=== PATIENT | male | born 1970 | race Caucasian/White ===

== ENCOUNTER 2020-04-25 16:51 | Inpatient (IN) | payer OTHER ==
[~2020-04-25] VITALS: Ht 167.6 cm; Wt 107.2 kg
[2020-04-25 17:46] LABS: BASOPHILS ABSOLUTE AUTO 0.01 K/mm3 (0.00-0.23); BASOPHILS PERCENT AUTO 0 % (0-2); EOSINOPHILS ABSOLUTE AUTO 0.13 K/mm3 (0.00-0.68); EOSINOPHILS PERCENT AUTO 3 % (0-6); Hematocrit 48.4 % (37.0-53.0); Hemoglobin 16.3 g/dL (13.5-17.5); IMMATURE GRAN ABSOLUTE AUTO 0.01 K/mm3 (0.00-0.10); IMMATURE GRAN PERCENT AUTO 0 % (0-1); LYMPHOCYTES ABSOLUTE AUTO 1.46 K/mm3 (0.84-5.20); LYMPHOCYTES PERCENT AUTO 29 % (21-46); MONOCYTES ABSOLUTE AUTO 0.42 K/mm3 (0.16-1.47); MONOCYTES PERCENT AUTO 8 % (4-13); Mean Corpuscular HGB 30.6 pg (26.0-34.0); Mean Corpuscular HGB Conc 33.7 g/dL (31.5-36.5); Mean Corpuscular Volume 91 fL (80-100); Mean Platelet Volume 9.1 fL (9.1-12.4); NEUTROPHILS ABSOLUTE AUTO 3.07 K/mm3 (1.96-9.15); NEUTROPHILS PERCENT AUTO 60 % (41-73); Platelet Count 181 K/mm3 (150-400); RDW Coefficient Variation 12.2 % (11.7-14.2); RDW Standard Deviation 40.7 fL (35.1-46.3); Red Blood Cell Count 5.32 M/mm3 (4.30-5.90)
[2020-04-25 18:09] LABS: Troponin I 0.054 ng/mL (0.000-0.040)
[2020-04-25 18:20] LABS: Alanine Aminotransfer (ALT/SGP 62 U/L (12-78); Albumin, Blood 3.8 g/dL (3.4-5.0); Albumin/Globulin Ratio 0.9 (0.8-1.8); Alk Phos 73 U/L (50-136); Anion Gap 6 mmol/L (6-16); Aspartate Aminotrans (AST/SGOT 46 U/L (12-37); Bilirubin, Total 0.5 mg/dL (0.1-1.0); Blood Urea Nitrogen 15 mg/dL (8-24); CO2, Blood 27 mmol/L (21-32); Calcium, Blood 8.5 mg/dL (8.5-10.1); Chloride, Blood 105 mmol/L (98-108); Creatinine, Blood 1.25 mg/dL (0.60-1.20); Globulin, Blood 4.3 g/dL (2.2-4.0); Glomerular Filtration Rate >60 (60-); Glucose, Blood 108 mg/dL (70-99); Potassium, Blood 4.4 mmol/L (3.5-5.5); Sodium, Blood 138 mmol/L (136-145); Total Protein, Blood 8.1 g/dL (6.4-8.2)
[2020-04-25] MEDS ORDERED: ASPI325EC PO (20:17)
--- NOTE | 2020-04-26 00:30 | NUR ---
0025 PT ADMITTED TO ROOM 343 PER CART FROM ER; REPORT RECEIVED FROM MAC RN; PT ALERT AND ORIENTED X 4; PT STUTTERS WITH SPEECH AT TIMES; DENIES PAIN OR NAUSEA; BALANCE UNSTEADY MOVING FROM CART TO BED.
--- NOTE | 2020-04-26 04:20 | NUR ---
SHIFT SUMMARY: 49 Y/O MALE RESTED COMFORTABLY IN BED; DENIES PAIN OR NAUSEA; PTS EQUILBRUM IS POOR WITH GAIT UNSTEADY; ALERT AND ORIENTED X 3, ABLE TO FOLLOW SIMPLE VERBAL COMMANDS; BED ALARM APPLIED, BED LOW POSITION WITH CALL LIGHT AT SIDE.
[2020-04-26 08:08] LABS: CHOL/HDL RATIO 6.2; Cholesterol 217 mg/dL (50-200); HDL Cholesterol 35 mg/dL (>39); LDL/HDL RATIO 4.1; Low Density Lipoprotein Chol 144 mg/dL (0-110); Triglycerides 190 mg/dL (30-160); Very Low Density Lipoprot Chol 38 mg/dL (6-32)
[2020-04-26 10:58] LABS: U Amphetamine Screen Not Detected; U Barbituate Screen Not Detected; U Benzodiazapine Screen Not Detected; U Buprenorphine Screen Not Detected; U Cannabinoids Screen Not Detected; U Cocaine Screen Not Detected; U Methadone Screen Not Detected; U Methamphetamine Screen Not Detected; U Opiates Screen Not Detected; U Oxycodone Screen Not Detected; U Phencyclidine Screen Not Detected; U Propoxyphene Screen Not Detected
--- NOTE | 2020-04-26 12:54 | NUR ---
ECHOCARDIOGRAM COMPLETE
--- NOTE | 2020-04-26 17:52 | NUR ---
SHIFT SUMMARY PT COMPLETED MRI OF HEAD TODAY. PHYSICAL THERAPY EVAL COMPLETED TODAY WELL. PT TO [facility] PHYSICAL THERAPY TOMORROW TO DETERMINE THE NEED FOR A WALKER VS CANE. PT SISTER, SUSHILA IN TO SEE PT TODAY & UPDATE ON CONDITION/PLAN OF CARE. SLIGHT WEAKNESS & DISCOORDINATION TO THE R SIDE OBSERVED WITH TRANSFERS & AMBULATION. PT REMINDED TO USE CALL LIGHT. CHAIR & BED ALARMS IN USE. PT UP SITTING ON THE SIDE OF THE COT IN ROOM. EATING DINNER. CALL LIGHT IN REACH. VS REVIEWED. NO ACUTE CHANGES IN ASSESSMENT AT THIS TIME.
--- NOTE | 2020-04-27 05:30 | NUR ---
04/27/20 0515 BP BETTER THIS AM. DENIES ANY DISCOMFORT. SLEPT WELL AFTER MIDNIGHT. NO SLURRED SPEECH NOTED THIS AM. VOIDING QS. VITALS STABLE.
[2020-04-27 05:40] LABS: BASOPHILS ABSOLUTE AUTO 0.02 K/mm3 (0.00-0.23); BASOPHILS PERCENT AUTO 0 % (0-2); EOSINOPHILS ABSOLUTE AUTO 0.12 K/mm3 (0.00-0.68); EOSINOPHILS PERCENT AUTO 2 % (0-6); Hematocrit 48.8 % (37.0-53.0); Hemoglobin 16.5 g/dL (13.5-17.5); IMMATURE GRAN PERCENT AUTO 0 % (0-1); LYMPHOCYTES PERCENT AUTO 27 % (21-46); MONOCYTES ABSOLUTE AUTO 0.52 K/mm3 (0.16-1.47); MONOCYTES PERCENT AUTO 10 % (4-13); Mean Corpuscular HGB 30.5 pg (26.0-34.0); Mean Corpuscular HGB Conc 33.8 g/dL (31.5-36.5); Mean Corpuscular Volume 90 fL (80-100); Mean Platelet Volume 9.4 fL (9.1-12.4); NEUTROPHILS ABSOLUTE AUTO 3.23 K/mm3 (1.96-9.15); NEUTROPHILS PERCENT AUTO 61 % (41-73); Platelet Count 170 K/mm3 (150-400); RDW Coefficient Variation 12.4 % (11.7-14.2); RDW Standard Deviation 40.5 fL (35.1-46.3); Red Blood Cell Count 5.41 M/mm3 (4.30-5.90); White Blood Cell Count 5.29 K/mm3 (4.00-11.30)
[2020-04-27 06:06] LABS: Alanine Aminotransfer (ALT/SGP 50 U/L (12-78); Albumin, Blood 3.4 g/dL (3.4-5.0); Albumin/Globulin Ratio 0.8 (0.8-1.8); Alk Phos 65 U/L (50-136); Anion Gap 7 mmol/L (6-16); Aspartate Aminotrans (AST/SGOT 20 U/L (12-37); Bilirubin, Total 0.7 mg/dL (0.1-1.0); Blood Urea Nitrogen 14 mg/dL (8-24); Bun/Creatinine Ratio 12.6 (12.0-20.0); CO2, Blood 26 mmol/L (21-32); Calcium, Blood 8.9 mg/dL (8.5-10.1); Chloride, Blood 105 mmol/L (98-108); Creatinine, Blood 1.11 mg/dL (0.60-1.20); Globulin, Blood 4.3 g/dL (2.2-4.0); Glomerular Filtration Rate >60 (60-); Glucose, Blood 105 mg/dL (70-99); Potassium, Blood 3.8 mmol/L (3.5-5.5); Sodium, Blood 138 mmol/L (136-145); Total Protein, Blood 7.7 g/dL (6.4-8.2); Troponin I 0.059 ng/mL (0.000-0.040)
[2020-04-27] MEDS ORDERED: ACET325 PO (12:17)
[2020-04-27] MEDS ORDERED: DULCOLAX400 MG/5 M PO (12:18)
[2020-04-27] MEDS ORDERED: ATOR80 PO (12:18)
[2020-04-27] MEDS ORDERED: ONDA4ODT MM (12:19)
--- NOTE | 2020-04-27 13:33 | NUR ---
DISCHARGE PT DISCHARGED AT 1303. PT WHEELED OUT BY AIDE & PICKED UP BY SISTER. NO ACUTE CHANGES IN ASSESSMENT PRIOR TO DC. PT DRESSED HIMSELF FOR DC WITH SUPERVISION. PT & HIS SITER, ATUL, EDUCATED ON NEW MEDS AND DC FOLLOW UP APPOINTMENTS. HARD SCRIPT FOR WALKER SENT WITH PT.
== END 2020-04-27 13:04 | disposition home health service (06) | DRG 66 ==
LOC: ER 16:51 → MEDS 16:52
PROVIDERS: Family Medicine; Physician Assistant; ADMIT Internal Medicine
DX: I63.81 Other cerebral infarction due to occlusion or stenosis of small artery (principal); R47.81 Slurred speech; Q90.9 Down syndrome, unspecified; F17.220 Nicotine dependence, chewing tobacco, uncomplicated; E78.5 Hyperlipidemia, unspecified; I45.10 Unspecified right bundle-branch block
CPT/HCPCS: 36415; 70450; 70551; 80053; 80061; 84443; 84484; 85025; 92523; 93005; 93010; 93306; 97110; 97116; 97161; 99285-25; A9270; G0378